=== PATIENT | female | born 1940 | race Caucasian/White ===

== ENCOUNTER → 2019-03-14 | Outpatient (CLI) | payer MEDICARE, BC, OTHER ==
--- NOTE | 2019-03-14 11:16 | RADIOLOGY IMAGING REPORT ---
FACILITY: [facility] - [place] PATIENT NAME: Yanira Brown : 1940 MR: [id number] V: [id number] EXAM DATE: ORDERING PHYSICIAN: JOSE JUNE TECHNOLOGIST: Location: [facility] - [place] Patient: Yanira Brown : 1940 Visit/Account:[id number] Date of Sevice: 03/14/2019 DEXA Scan Clinical history: Postmenopausal. Comparison: DEXA scan from 01/27/2017. LUMBAR SPINE: The bone mineral density (BMD) measured from L1-L4 correlates with a Z-score of 0.7 and a T-score of -1 which is Normal as defined by the World Health Organization. The corresponding risk of fracture i n the lumbar spine is 2 times increased compared with a young adult reference population. This value has increase by 17.7 % since the prior study. More than 5% change is considered significant. HIP: Bone mineral density (BMD) measured in the LEFT total hip region correlates with a Z-score -0.7 and a T-score of -2.4 which is osteopenia as defined by the World Health Organization. The corresponding risk of fracture in the hip is 4-6 times increased compared to a young adult reference population. Th is value has decrease by 1.4 % since the prior study. More than 5% change is considered significant. T score left femoral neck -2.4 Bone mineral density (BMD) measured in the Femoral Neck region measures 0.708 g/cm?. IMPRESSION: 1. Lumbar spine: Normal. There has been 17.7% increase in the bone mineral density since the previo us exam. 2. Left Total Hip: Osteopenia. There has been 1.4% decrease in the bone mineral density since the p revious exam. 3. Femoral Neck: Bone Mineral Density is 0.708 g/cm? The next DEXA scan of this patient should include the following sites: L1-L4 and the left hip. FRAX? WHO Fracture Risk Assessment Tool link: <http://www.shef.ac.uk/FRAX/tool.jsp?locationValue=9> PLEASE NOTE: 1) The World Health Organization defines low BMD as follows: T-score Normal > -1 Osteopenia < -1 and > -2.5 Osteoporosis < -2.5 without fractures Established osteoporosis < -2.5 with fractures 2) In general, you may wish to consider: Diagnosis Treatment Follow-up DEXA Normal BMD Prevention 2-3 years Osteopenia Prevention/therapy 1-2 years Osteoporosis Therapy Yearly 3) Fracture risk estimated from the T-score is more accurate for vertebral fractures (often spontane ous) than for hip fractures. Report Dictated By: Christal Purvis MD at 03/14/2019 11:00 AM Report E-Signed By: Christal Purvis MD at 03/14/2019 11:09 AM WSN:[email or web address]
== END ==
LOC: RAD 01:12
PROVIDERS: ATTEND Physician Assistant
DX: M85.852 Other specified disorders of bone density and structure, left thigh (principal)
CPT/HCPCS: 77080